=== PATIENT | female | born 2000 | race Caucasian/White ===

== ENCOUNTER 2021-01-18 08:41 | Inpatient (IN) | payer BC ==
[~2021-01-18] VITALS: Ht 170.2 cm; Wt 97.5 kg
[2021-01-21] MEDS ORDERED: PROMETHAZINE HCL 25 MG/ML 1ML AMPULE IM PRN (18:00)
[2021-01-21] MEDS ORDERED: DINOPROSTONE 10 MG VAGINAL SUPP VG SCH (18:00)
[2021-01-21] MEDS ORDERED: MEPERIDINE-PF 50 MG/ML SYG IM PRN (18:00)
[2021-01-21] MEDS ORDERED: NALOXONE HCL 0.4 MG/1 ML ML IV PRN (18:00)
[2021-01-21] MEDS ORDERED: EPHEDRINE SULFATE 50 MG/ML AMPULE IVP PRN (18:00)
[2021-01-21] MEDS ORDERED: ROPIVACAINE 0.2% 100ML VIAL 100 ML EP PRN (18:00)
[2021-01-21] MEDS ORDERED: OXYTOCIN-LR 20 UNITS/1000 ML 1,000 ML IV SCH (18:00)
[2021-01-21] MEDS ORDERED: LACTATED RINGERS 500 ML 500 ML IV PRN (18:00)
[2021-01-21 18:37] LABS: HEMATOCRIT 37.9 % (36-48); MEAN CORPUSCULAR HEMOGLOBIN 28.2 pg (27.0-33.0); MEAN CORPUSCULAR VOLUME 85.6 fL (79-99); RED BLOOD CELL COUNT(AUTO) 4.43 MIL/uL (4.00-5.50); RED CELL DISTRIBUTION WIDTH 16.3 % (11.0-15.5); WHITE BLOOD COUNT (AUTO) 12.6 K/uL (4.8-10.8)
[2021-01-21 18:40] LABS: APPEARANCE,URINE Clear (CLEAR); BILIRUBIN,URINE Negative (NEGATIVE); COLOR,URINE Yellow (YELLOW); GLUCOSE, URINE (UA) Negative (NEGATIVE); KETONES,URINE Trace mg/dL (NEGATIVE); LEUKOCYTE ESTERASE ,URINE Negative (NEGATIVE); NITRATE,URINE Negative (NEGATIVE); OCCULT BLOOD,URINE Negative (NEGATIVE); PROTEIN,URINE Trace mg/dL (NEGATIVE)
[2021-01-21 18:50] LABS: BACTERIA,URINE Few /HPF (None Seen); MUCUS,URINE Few LPF (None Seen); SQUAMOUS EPITHELIAL CELL,UR Rare /HPF (0-2)
[2021-01-21] MEDS ORDERED: CITRIC ACID/SODIUM CITRATE 30 ML UDCUP PO SCH (22:00)
[2021-01-21] MEDS ORDERED: CITRIC ACID/SODIUM CITRATE 30 ML UDCUP ONE (22:12)
[2021-01-22] MEDS: LACTATED RINGERS 1000ML 1,000 ML IV PRN ×2 (03:11→10:12)
[2021-01-22] MEDS: OXYTOCIN-LR 20 UNITS/1000 ML 1,000 ML IV SCH ×2 (09:23→15:48)
[2021-01-22] MEDS ORDERED: MEPERIDINE-PF 50 MG/ML SYG SIVP PRN (12:00)
[2021-01-22] MEDS ORDERED: LIDOCAINE HCL 1% 20 ML VIAL ONE (13:04)
[2021-01-22] MEDS ORDERED: METHYLERGONOVINE MALEATE 0.2 MG/1 ML ML ONE (13:14)
[2021-01-22] MEDS ORDERED: MISOPROSTOL 200 MCG TABLET ONE (13:14)
[2021-01-22] MEDS ORDERED: LIDOCAINE HCL 1% 20 ML VIAL INJ SCH (13:30)
[2021-01-22] MEDS ORDERED: BENZOCAINE/LANOLIN/ALOE VERA 60 ML AEROSOL TP PRN (13:30)
[2021-01-22] MEDS ORDERED: LANOLIN 30GM OINTMENT TP PRN (13:30)
[2021-01-22] MEDS ORDERED: WITCH HAZEL 1 PAD TP PRN (13:30)
[2021-01-22] MEDS ORDERED: DIPH,PERTUSS(ACELL),TET VAC/PF 0.5 ML VIAL IM PRN (13:30)
[2021-01-22] MEDS ORDERED: MEASLES/MUMPS/RUBELLA VACCINE, LIVE 0.5 ML/VIAL SQ PRN (13:30)
[2021-01-22] MEDS ORDERED: METHYLERGONOVINE MALEATE 0.2 MG/1 ML ML IM SCH (13:30)
[2021-01-22] MEDS ORDERED: ACETAMINOPHEN WITH CODEINE 1 TAB TAB PO PRN (13:30)
[2021-01-22] MEDS ORDERED: ACETAMINOPHEN 325 MG TAB PO PRN (13:30)
[2021-01-22] MEDS ORDERED: PREN-154 PO (13:51)
[2021-01-22 16:00] VITALS: BP 112/74
[2021-01-22 20:00] VITALS: BP 126/70
[2021-01-22] MEDS: DOCUSATE SODIUM 100 MG CAP PO SCH (21:21)
[2021-01-22 23:45] VITALS: BP 116/72
[2021-01-23] MEDS: IBUPROFEN 600 MG TABLET PO PRN ×2 (00:01→09:08)
[2021-01-23 04:00] VITALS: BP 117/73
[2021-01-23 06:40] LABS: HEMATOCRIT 32.3 % (36-48); MEAN CORPUSCULAR HEMOGLOBIN 27.8 pg (27.0-33.0); MEAN CORPUSCULAR HGB CONC 31.6 g/dL (32.0-36.0); RED BLOOD CELL COUNT(AUTO) 3.67 MIL/uL (4.00-5.50); RED CELL DISTRIBUTION WIDTH 16.8 % (11.0-15.5); WHITE BLOOD COUNT (AUTO) 13.5 K/uL (4.8-10.8)
[2021-01-23 07:15] LABS: HEPATITIS Bs ANTIGEN SCREEN P Negative (Negative)
[2021-01-23 07:28] VITALS: BP 111/67
[2021-01-23] MEDS: DOCUSATE SODIUM 100 MG CAP PO SCH (09:07)
[2021-01-23 11:12] VITALS: BP 119/71
[2021-01-23] MEDS ORDERED: IBUP-2077 PO (12:36)
[2021-01-23] MEDS ORDERED: DOCU-116 PO (12:37)
== END 2021-01-23 13:45 | disposition home or self-care (01) | DRG 807 ==
LOC: OBSVTOIN 01-21 17:41 → LDH 01-21 17:41 → WSH 01-22 15:00
PROVIDERS: ADMIT Obstetrics & Gynecology; ATTEND Obstetrics & Gynecology
PROC: 10E0XZZ Delivery of Products of Conception, External Approach (ICD-10-PCS; principal; 2021-01-22)
PROC: 0KQM0ZZ Repair Perineum Muscle, Open Approach (ICD-10-PCS; 2021-01-22)
PROC: 3E0234Z Introduction of Serum, Toxoid and Vaccine into Muscle, Percutaneous Approach (ICD-10-PCS; 2021-01-22)
PROC: 3E0134Z Introduction of Serum, Toxoid and Vaccine into Subcutaneous Tissue, Percutaneous Approach (ICD-10-PCS; 2021-01-22)
PROC: 3E0P7VZ Introduction of Hormone into Female Reproductive, Via Natural or Artificial Opening (ICD-10-PCS; 2021-01-22)
PROC: 10907ZC Drainage of Amniotic Fluid, Therapeutic from Products of Conception, Via Natural or Artificial Opening (ICD-10-PCS; 2021-01-22)
PROC: 3E033VJ Introduction of Other Hormone into Peripheral Vein, Percutaneous Approach (ICD-10-PCS; 2021-01-22)
PROC: 3E0R3BZ Introduction of Anesthetic Agent into Spinal Canal, Percutaneous Approach (ICD-10-PCS; 2021-01-22)
PROC: 00HU33Z Insertion of Infusion Device into Spinal Canal, Percutaneous Approach (ICD-10-PCS; 2021-01-22)
DX: O69.1XX0 Labor and delivery complicated by cord around neck, with compression, not applicable or unspecified (principal); Z37.0 Single live birth; O99.214 Obesity complicating childbirth; E66.01 Morbid (severe) obesity due to excess calories; Z23 Encounter for immunization; Z3A.40 40 weeks gestation of pregnancy; O70.1 Second degree perineal laceration during delivery
CPT/HCPCS: 36415; 81001; 85027; 86592; 86701; 86850; 86900; 86901; 87340; 87390; 90707; 90715; A4314; A4351; G0378; J2175; J2210; J2550; J2590; J2795; J7120